=== PATIENT | male | born 1980 | race Hispanic/Latino ===

== ENCOUNTER 2018-06-05 16:05 | Inpatient (IN) | payer OTHER ==
--- NOTE | 2018-06-05 16:36 | C.PDOC ---
History Of Present Illness 38 y/o male, pre-screened, comes in requesting detox from heroin. Patient reports last use was around 8:30am this morning via IVP, 4 bags. Patients has no medical complaints at this time. Time Seen by Provider: 06/05/18 16:20 Chief Complaint (Nursing): Substance Abuse History Per: Patient History/Exam Limitations: no limitations Onset/Duration Of Symptoms: Days Current Symptoms Are (Timing): Still Present Past Medical History Reviewed: Historical Data, Nursing Documentation, Vital Signs Vital Signs: Last Vital Signs Temp 99 F 06/05/18 16:09 Pulse 86 06/05/18 16:09 Resp 20 06/05/18 16:09 BP 134/86 06/05/18 16:09 Pulse Ox 100 06/05/18 16:09 - Medical History PMH: Post Traumatic Stress Disorder Family History: States: No Known Family Hx - Social History Hx Alcohol Use: No Hx Substance Use: Yes - Immunization History Hx Tetanus Toxoid Vaccination: No Hx Influenza Vaccination: No Review Of Systems Except As Marked, All Systems Reviewed And Found Negative. Constitutional: Negative for: Fever, Chills Psych: Positive for: Other (heroin abuse). Negative for: Suicidal ideation Physical Exam - Physical Exam Appears: Non-toxic, No Acute Distress Skin: Warm, Dry Head: Atraumatic, Normacephalic Eye(s): bilateral: Normal Inspection Oral Mucosa: Moist Neck: Supple Cardiovascular: Rhythm Regular, No Murmur Respiratory: Normal Breath Sounds, No Rales, No Rhonchi, No Wheezing Gastrointestinal/Abdominal: Soft, No Tenderness Extremity: Bilateral: Atraumatic Neurological/Psych: Oriented x3, Normal Speech ED Course And Treatment - Laboratory Results Result Diagrams: 06/05/18 17:21 06/05/18 17:21 O2 Sat by Pulse Oximetry: 100 (RA) Pulse Ox Interpretation: Normal Medical Decision Making Medical Decision Making: Plan: --Labs --UA Disposition - Disposition Disposition: HOSPITALIZED Disposition Time: 20:15 Condition: STABLE - Clinical Impression Clinical Impression: Opiate abuse, continuous - Scribe Statement The provider has reviewed the documentation as recorded by the Sydneyibyesenia Hunter Provider Attestation: All medical record entries made by the Sydneyibe were at my direction and personally dictated by me. I have reviewed the chart and agree that the record accurately reflects my personal performance of the history, physical exam, medical decision making, and the department course for this patient. I have also personally directed, reviewed, and agree with the discharge instructions and disposition. Decision To Admit - Pt Status Changed To: Hospital Disposition Of: Inpatient - Admit Certification Admit to Inpatient:: After my assessment, the patient will require hospitalization for at least two midnights. This is because of the severity of symptoms shown, intensity of services needed, and/or the medical risk in this patient being treated as an outpatient. - InPatient: Physician Admission Certification: I certify that this patient requires 2 or more midnights of care for the following reason:: needs detox - . Bed Request Type: Detox Admitting Physician: Sharri Peguero Patient Diagnosis: Opiate abuse, continuous
[2018-06-05 17:23] LABS: BASO % 0.7 % (0.0-2.0); EOS # 0.1 K/uL (0.0-0.7); EOS % 1.5 % (0.0-4.0); HEMOGLOBIN 13.8 g/dL (12.0-18.0); LYMPH # 1.5 K/uL (1.0-4.3); MEAN CELL VOLUME 88.9 fL (80.0-94.0); MEAN CORPUSCULAR HEMOGLOBIN 29.5 pg (27.0-31.0); MEAN CORPUSCULAR HGB CONC 33.2 g/dL (33.0-37.0); MEAN PLATELET VOLUME 7.7 fL (7.2-11.7); MONO # 0.4 K/uL (0.0-0.8); MONO % 5.6 % (0.0-10.0); NEUT # 5.1 K/uL (1.8-7.0); NEUT % 71.2 % (50.0-75.0); NRBC % 0.1 % (0.0-2.0); RBC 4.7 Mil/uL (4.40-5.90); RED CELL DISTRIBUTION WIDTH 12.8 % (11.5-14.5); WHITE BLOOD COUNT 7.2 K/uL (4.8-10.8)
[2018-06-05 17:38] LABS: SQUAMOUS EPITHIAL < 1 /hpf (0-5); URINE BACTERIA RARE (<OCC); URINE BILIRUBIN NEGATIVE (NEGATIVE); URINE BLOOD NEGATIVE (NEGATIVE); URINE CLARITY Clear (Clear); URINE COLOR Yellow (YELLOW); URINE GLUCOSE (UA) NORMAL (Normal); URINE LEUKOCYTE ESTERASE NEG Leu/uL (Negative); URINE PROTEIN NEGATIVE (NEGATIVE); URINE UROBILINOGEN NORMAL mg/dL (0.2-1.0)
[2018-06-05 17:39] LABS: BARBITURATES, UR NEGATIVE (NEGATIVE); BENZODIAZEPINES, UR NEGATIVE (NEGATIVE); PHENCYCLIDINE, UR NEGATIVE (NEGATIVE)
[2018-06-05 17:40] LABS: OPIATES, UR POSITIVE (NEGATIVE)
[2018-06-05 17:46] LABS: ALB/GLOB RATIO 1.5 (1.0-2.1); ALBUMIN 4.4 g/dL (3.5-5.0); ALT/SGPT 9 U/L (21-72); AST/SGOT 17 U/L (17-59); BLOOD UREA NITROGEN 13 mg/dL (9-20); CALCIUM 9.1 mg/dl (8.6-10.4); GFR NON-AFRICAN AMERICAN > 60
--- NOTE | 2018-06-05 20:15 | PCM.BM ---
<Danii Geller M - Last Filed: 06/05/18 20:14> Treatment Plan Problems - Problems identified on initial assessmt Denial Date Initiated: 06/05/18 Time Initiated: 20:15 Assessment reference: NA Status: Active Treatment assets and liabiliti Patient Assests: ADL independent, negotiates basic needs Patient Liabilities: substance abuse - Milieu Protocol Maintain good personal hygiene: daily Encourage regular showers, daily Remind patient to perform daily oral care, daily Assist patient to perform ADL's Conduct patient checks and document Observation sheet: Q15 minutes Maintain personal safety: every shift Educate patient to report safety concerns to staff, every shift Monitor environment for contraband/sharps Medication safety: Monitor for expected outcome, potential side effects: every shift, Assess barriers to learning: every shift, Assess readiness for medication education: every shift <Zac Milligan M - Last Filed: 06/09/18 17:38> - Diagnosis (1) Opioid use disorder, severe, dependence Status: Acute Interventions: 06/09/18 17:36 * Assess/adjust medications daily and /or as needed * See patient on an individual basis 7x/week to assess symptoms of depression * Monitor for side effects & effectiveness of medications (2) Cocaine use disorder, severe, dependence Status: Acute Interventions: 06/09/18 17:36 * Assess/adjust medications daily and /or as needed * See patient on an individual basis 7x/week to assess symptoms of depression * Monitor for side effects & effectiveness of medications (3) Cannabis use disorder, moderate, dependence Status: Acute Interventions: 06/09/18 17:37 * Assess/adjust medications daily and /or as needed * See patient on an individual basis 7x/week to assess symptoms of depression * Monitor for side effects & effectiveness of medications (4) Chronic post-traumatic stress disorder (PTSD) Status: Acute Interventions: 06/09/18 17:38 * Assess 7x/week regarding severity of withdrawal * Educate regarding risks, benefits, side effects and alternatives of medications * Use Motivational Interviewing for abstinence * Use CBT for relapse prevention * Medication management for withdrawal symptoms * Encourage medication assisted treatment (5) Major depressive disorder, recurrent, moderate Status: Acute Interventions: 06/09/18 17:38 * Assess 7x/week regarding severity of withdrawal * Educate regarding risks, benefits, side effects and alternatives of medications * Use Motivational Interviewing for abstinence * Use CBT for relapse prevention * Medication management for withdrawal symptoms * Encourage medication assisted treatment
--- NOTE | 2018-06-06 09:52 | PCM.PSYCH ---
Initial Psychiatric Evaluation - Initial Psychiatric Evaluation Type of Admission: Voluntary Legal Status: Capacity Chief Complaint (in patient's own words): I came here to get help.' History of Present Illness and Precipitating Events: Patient is a 38yo male with PMH of PTSD, who lives with his fiance and her parents, builds ventilation systems for a living, and is a . Patient come to detox unit for cessation of heroin use. Patient takes heroin intravenously. His last use was yesterday (06/05/18, at 8:30am). He used 5 bags. His normal daily use is 15-20 bags. He has been using for "a couple years" and denies history of overdose. Patient started using due to chronic pain that he developed during the course of his work. He had been given prescription opioids and eventually turned to heroin. He is still experiencing back pain. He does not have a painter barrel and has not seen a chiropractor or had OMT performed in the past. Patient admits to smoking 1 pack of cigarettes daily and has been smoking for 20 years. patient also admits to marijuana use. Patient denies use of alcohol or any other drugs. Patient complains of restlessness, anxiety, diaphoresis, tremors, nausea, piloerection, yawning, and rhinorrhea. Patient complains of depression, sleep disturbance, anhedonia, guilt (about drug use), low energy, and reduced appetite. Patient denies auditory and visual hallucinations, as well as suic idal/homicidal ideation. Current Medications: Active Medications Generic Name Dose Route Start Last Admin Trade Name Freq PRN Reason Stop Dose Admin Hydroxyzine HCl 50 mg 06/05/18 21:11 06/05/18 21:22 Atarax PO 50 mg Q6H PRN Administration Anxiety Methadone HCl 15 mg 06/06/18 10:00 Methadone PO 06/06/18 10:01 ONCE ONE Trazodone HCl 100 mg 06/05/18 21:12 06/05/18 21:21 Desyrel PO 100 mg HS PRN Administration Insomnia Past Psychiatric History - Past Psychiatric History Previous Treatment History: Inpatient Pertinent Medical Hx (Current Medical&Sleep Prob, Allergies): Allergies Allergy/AdvReac Type Severity Reaction Status Date / Time Penicillins Allergy RASH Verified 06/05/18 16:14 No Known Home Med 06/05/18 Review of Systems - Review of Systems All systems: reviewed and no additional remarkable complaints except - Psychiatric Psychiatric: Anxiety, Irritability. absent: Suicidal Ideation Mental Status Examination - Personal Presentation Personal Presentation: Looks stated age - Affect Affect: Constricted - Motor Activity Motor Activity: Calm - Reliability in Providing Information Reliability in Providing Information: Fair - Speech Speech: Organized - Mood Mood: Anxious - Formal Thought Process Formal Thought Process: No Impairment - Obsessions/Compulsions Obsessions: No Compulsions: No - Cognitive Functions Orientation: Person, Place, Situation, Time Sensorium: Alert Attention/Concentration: Attentive Abstract Thinking: [place] Estimate of Intelligence: Below average Judgement: Imparied, as evidence by: Poor judgement, Imparied, as evidence by: Lack of insight into illness - Risk Risk: Diminished functioning - Limitations Limitations: Living alone DSM 5 DX - DSM 5 DSM 5 Diagnosis: Opioid withdrawal Opioid use disorder severe Cocaine use disorder severe Cannabis use disorder moderate Depressive disorder PTSD chronic - Recommended/Plan of Treatment Treatment Recommendations and Plan of Treatment: Opioid withdrawal Opioid use disorder severe Cocaine use disorder severe Cannabis use disorder moderate Depressive disorder PTSD chronic CBT for relapse prevention Encourage MAT [place] for abstinence Attend groups and activities Supportive therapy and psychoeducation All risks, benefits and alternatives of the meds discussed, and the pt agreed and understood. Taper with methadone Remeron for depressoin Gabapentin for augmentation Trazodone for insomnia As needed medications Refer to rehab or IOP, and self-help groups Teach healthy lifestyle methods, i.e. diet, exercise, meditation Smoking cessation with [place] Nicotine patch if needed
[2018-06-06] MEDS ORDERED: Aluminum Hydroxide/Magnesium Hydroxide Susp (30 mL) PO PRN (22:44)
[2018-06-07] MEDS: Multiple Vitamins Tab PO SCH (10:34)
--- NOTE | 2018-06-07 19:27 | PCM.PYCHPN ---
Psychiatric Progress Note - Psychiatric Progress Note Patient seen today, length of contact: 15 minutes Patient Chief Complaint: I am feeling little better. Problems Identified/Issues Discussed: Patient seen, chart reviewed, case discussed with the staff. Issues related to illness and treatment were discussed with the patient and staff. Reported compliance with treatment with no adverse effect. Tolerating treatment very well. Patient reported feeling little better, still has some withdrawal symptoms including body aches, abdominal cramps, nausea, decreased sleep and headache. Mood reported as anxious. Affect appropriate. Aftercare discussed with the patient. Patient denied any delusions, auditory or visual hallucinations, no suicidal ideations or homicidal ideations at the time of the evaluation. Medical Problems: None reported Diagnostic Results: Reviewed DSM 5 Symptoms Update: Some improvement with treatment Medication Change: No Medical Record Reviewed: Yes Mental Status Examination - Cognitive Function Orientation: Person, Place, Situation, Time Memory: Intact Attention: WNL Concentration: WNL Association: [facility] Fund of Knowledge: [facility] Decription of patient's judgement and insights: Fair - Mood Mood: Anxious - Affect Affect: Other (Appropriate) - Speech Speech: Appropriate - Formal Thought Process Formal Thought Process: No Impairment Psychotic Thoughts and Behaviors: None - Suicidal Ideation Suicidal Ideation: No - Homicidal Ideation Homicidal Ideation: No Goal/Treatment Plan - Goal/Treatment Plan Need for Continued Stay: Remain at risks for inpatient hospitalization, Discharge may exacerbated symptoms, Severe functional impairment Progress Toward Problem(s) and Goals/Treatment Plan: Some improvement with treatment. Patient education. Supportive therapy. [place] for abstinence. CBT for relapse prevention. Continue treatment as before. [facility]-up care after discharge from the hospital. Estimated Date of D/C: 06/09/18 - Smoking Cessation Smoking Cessation Initiated: No
[2018-06-08] MEDS: Multiple Vitamins Tab PO SCH (09:21)
--- NOTE | 2018-06-08 16:41 | PCM.PYCHPN ---
Psychiatric Progress Note - Psychiatric Progress Note Patient seen today, length of contact: 15 minutes Patient Chief Complaint: I am feeling better. Problems Identified/Issues Discussed: Patient seen, chart reviewed, case discussed with the staff. Issues related to illness and treatment were discussed with the patient and staff. Reported compliance with treatment with no adverse effect. Tolerating treatment very well. Patient reported feeling little better, still has some withdrawal symptoms including body aches, abdominal cramps, nausea, decreased sleep and headache. Mood reported as okay. Affect appropriate. Aftercare discussed with the patient. Patient denied any delusions, auditory or visual hallucinations, no suicidal ideations or homicidal ideations at the time of the evaluation. Medical Problems: None reported Diagnostic Results: Reviewed DSM 5 Symptoms Update: Some improvement with treatment. Medication Change: No Medical Record Reviewed: Yes Mental Status Examination - Cognitive Function Orientation: Person, Place, Situation, Time Memory: Intact Attention: WNL Concentration: WNL Association: [facility] Fund of Knowledge: [facility] Decription of patient's judgement and insights: Fair - Mood Mood: Neutral - Affect Affect: Other (Appropriate) - Speech Speech: Appropriate - Formal Thought Process Formal Thought Process: No Impairment Psychotic Thoughts and Behaviors: None - Suicidal Ideation Suicidal Ideation: No - Homicidal Ideation Homicidal Ideation: No Goal/Treatment Plan - Goal/Treatment Plan Need for Continued Stay: Remain at risks for inpatient hospitalization, Discharge may exacerbated symptoms, Severe functional impairment Progress Toward Problem(s) and Goals/Treatment Plan: Some improvement with treatment. Patient education. Supportive therapy. [place] for abstinence. CBT for relapse prevention. Continue treatment as before. [facility]-up care after discharge from the hospital. Estimated Date of D/C: 06/09/18 - Smoking Cessation Smoking Cessation Initiated: No
[2018-06-08 17:13] VITALS: RESP 18
[2018-06-09] MEDS: Multiple Vitamins Tab PO SCH (09:04)
[2018-06-09 12:55] VITALS: BP 110/72; PULSE 73; TEMP 98.3; O2SAT 97
--- NOTE | 2018-06-09 17:42 | PCM.PYCHDC ---
Mental Status Examination - Mental Status Examination Orientation: Person, Place, Situation, Time Memory: Intact Mood: Neutral Affect: Other (Appropriate) Speech: Appropriate Attention: WNL Concentration: WNL Association: WNL Fund of Knowledge: WNL Formal Thought Process: No Impairment Description of patient's judgement and insight: Fair Psychotic Thoughts and Behaviors: None Suicidal Ideation: No Current Homicidal Ideation?: No Discharge Summary - Discharge Note Reason for Hospitalization: Opioid use disorder severe Opioid withdrawal Cocaine use disorder severe Cannabis use disorder moderate PTSD chronic Major depressive disorder recurrent moderate Laboratory Data: Reviewed Consultations:: List each consultation separately and include: 1. Reason for request. 2. Findings. 3. Follow-up Summary of Hospital Course include:: 1. Description of specific treatment plan utilized for patients during their course of treatmen. 2. Summarize the time- course for resolution of acute symptoms and/or regressed behaviors. 3. Describe issues identified and worked on during hospitalization. 4. Describe medication utilized. 5. Describe medical problems identified and treated. 6. Reassessment of suicide risk Summary of Hospital Course: Patient is a 38yo male with PMH of PTSD, who lives with his fiance and her parents, builds ventilation systems for a living, and is a . Patient come to detox unit for cessation of heroin use. Patient takes heroin intravenously. His last use was yesterday (06/05/18, at 8:30am). He used 5 bags. His normal daily use is 15-20 bags. He has been using for "a couple years" and denies history of overdose. Patient started using due to chronic pain that he developed during the course of his work. He had been given prescription opioids and eventually turned to heroin. He is still experiencing back pain. 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 Patient admits to smoking 1 pack of cigarettes daily and has been smoking for 20 years. patient also admits to marijuana use. Patient denies use of alcohol or any other drugs. Patient complains of restlessness, anxiety, diaphoresis, tremors, nausea, piloerection, yawning, and rhinorrhea. Patient complains of depression, sleep disturbance, anhedonia, guilt (about drug use), low energy, and reduced appetite. Patient denies auditory and visual hallucinations, as well as suicidal/homicidal ideation. During his stay in the hospital patient was treated with methadone taper, gabapentin, mirtazapine and other as needed medications. Patient was attending groups and other activities on the unit. With above treatment patient started feeling better. Today patient was stable and was ready for discharge from the hospital. At the time of her evaluation and discharge, patient was awake, alert and oriented x3, had no delusions, no auditory or visual hallucinations, no suicidal ideations or homicidal ideations. Patient was discharged in stable condition. - Diagnosis (1) Opioid use disorder, severe, dependence Status: Acute (2) Cocaine use disorder, severe, dependence Status: Acute (3) Cannabis use disorder, moderate, dependence Status: Acute (4) Chronic post-traumatic stress disorder (PTSD) Status: Acute (5) Major depressive disorder, recurrent, moderate Status: Acute - Final Diagnosis (DSM 5) Condition upon Discharge: STABLE Disposition: HOME/ ROUTINE Follow-up Treatment Plan: Patient will go to [facility] for follow-up care after discharge from the hospital. Prescriptions/Medication Reconciliation: Gabapentin [Neurontin] 300 mg PO QID #120 cap Mirtazapine [Remeron] 15 mg PO HS #30 tab traZODone [Desyrel] 100 mg PO HS PRN #30 tab PRN Reason: Insomnia - Smoking Cessation Smoking Cessation Medication prescribed: No - Antipsychotic Medications Pt discharged on 2 or more routine antipsychotic medications: No
== END 2018-06-09 12:50 | disposition home or self-care (01) | DRG 895 ==
LOC: C.ER 16:05 → C.9E 19:16 → C.7D 20:06
PROVIDERS: ADMIT Psychiatry & Neurology Psychiatry; ATTEND Psychiatry & Neurology Psychiatry
PROC: HZ2ZZZZ Detoxification Services for Substance Abuse Treatment (ICD-10-PCS; principal; 2018-06-05)
PROC: HZ52ZZZ Individual Psychotherapy for Substance Abuse Treatment, Cognitive-Behavioral (ICD-10-PCS; 2018-06-05)
PROC: HZ59ZZZ Individual Psychotherapy for Substance Abuse Treatment, Supportive (ICD-10-PCS; 2018-06-05)
PROC: HZ56ZZZ Individual Psychotherapy for Substance Abuse Treatment, Psychoeducation (ICD-10-PCS; 2018-06-05)
PROC: HZ42ZZZ Group Counseling for Substance Abuse Treatment, Cognitive-Behavioral (ICD-10-PCS; 2018-06-05)
PROC: HZ46ZZZ Group Counseling for Substance Abuse Treatment, Psychoeducation (ICD-10-PCS; 2018-06-05)
PROC: GZHZZZZ Group Psychotherapy (ICD-10-PCS; 2018-06-05)
PROC: GZ58ZZZ Individual Psychotherapy, Cognitive-Behavioral (ICD-10-PCS; 2018-06-05)
PROC: GZ56ZZZ Individual Psychotherapy, Supportive (ICD-10-PCS; 2018-06-05)
DX: F11.23 Opioid dependence with withdrawal (principal); F14.20 Cocaine dependence, uncomplicated; F33.1 Major depressive disorder, recurrent, moderate; F12.20 Cannabis dependence, uncomplicated; F43.12 Post-traumatic stress disorder, chronic; G89.29 Other chronic pain; F17.210 Nicotine dependence, cigarettes, uncomplicated